=== PATIENT | male | born 1965 | race Caucasian/White ===

== ENCOUNTER 2016-05-26 22:41 | Emergency (ER) | payer SELFPAY ==
[~2016-05-26 22:41] MED LIST: Z.0.NO CURRENT MEDS
[2016-05-26 22:44] VITALS: BP 157/117; PULSE 106; RESP 20; TEMP 97.4; O2SAT 98
[2016-05-26] MEDS ORDERED: SILVER NITR/POTASSIUM NITRATE APPLICATORS TOPICAL ONE (23:30)
[2016-05-26] MEDS ORDERED: LIDOCAINE 1%/EPINEPHrine 1:100,000 SOLN 20 ML VIAL INFIL ONE (23:45)
--- NOTE | 2016-05-27 | PD ---
HPI Chief Complaint: Skin Problem Time Seen by Provider: 23:57 Travel History International Travel<30 days: No Contact w/Intl Traveler<30days: No Traveled to known affect area: No History of Present Illness HPI 50-year-old male presents to the emergency department with persistent bleeding from the left cheek after scratching his face with his fingernail. Patient states he felt a bump on his face and scratched and then started noticing a large amount of bleeding. No other injury. No prior history of similar complaint. No blood thinning agents taken. PFSH Past Medical History Tetanus Vaccination: < 5 Years Influenza Vaccination: No Social History Alcohol Use: Yes (8 BEERS DAILY) Tobacco Use: Yes (02/21 PPD) Substance Use: No Allergies-Medications (Allergen,Severity, Reaction): Coded Allergies: No Known Allergies (Unverified , 05/26/16) Reported Meds & Prescriptions Reported Meds & Active Scripts Active No Active Prescriptions or Reported Medications Review of Systems General / Constitutional: No: Fever, Chills HENT: No: Congestion, Nosebleed Cardiovascular: No: Chest Pain or Discomfort Respiratory: No: Shortness of Breath Gastrointestinal: No: Abdominal Pain Genitourinary: No: Flank Pain Musculoskeletal: No: Pain Skin: Positive Rash (roscea) Neurologic: No: Weakness Psychiatric: No: Anxiety Hematologic/Lymphatic: No: Easy Bruising, Lymph Node Enlargement Physical Exam Narrative Gen.: Well-developed well-nourished male in no acute distress no respiratory distress HEENT: Left cheek with brisk bleeding from what appears to be an avulsed angioma. No other injury. Bleeding controlled with direct pressure. Data Data Last Documented VS Vital Signs Date Time Temp Pulse Resp B/P Pulse Ox O2 Delivery O2 Flow Rate FiO2 05/26/16 22:44 97.4 106 20 157/117 98 Orders Silver Nitrate Applicators (Silver Nitra (05/26/16 23:30) Lidocai-Epi 1%-1:100,000 Inj (Xylocaine- (05/26/16 23:45) MDM Medical Decision Making Medical Screen Exam Complete: Yes Emergency Medical Condition: Yes Medical Record Reviewed: Yes Differential Diagnosis Avulsed angioma, puncture wound, coagulopathy Narrative Course Patient with brisk pulsatile light bleeding from an avulsed facial superficial angioma bleeding controlled direct pressure due to amount of bleeding decision made to place a suture to ligate the vessel at the surface. Patient is agreeable to this area was cleaned with Betadine 5-0 nylon was used as a one- time suture to ligate the bleeding and satisfactory/successful hemostasis achieved. Procedures Procedure Narrative LACERATION LOCATION: Left cheek LENGTH: Superficial hemangiomata subcentimeter NUMBER OF STITCHES/GALILEA: 1 REPAIR: The area of the laceration was prepped with Betadine and sterilely draped. The avulsed hemangioma neighboring soft tissue was infiltrated with 1% lidocaine with epi. The wound was copiously irrigated and explored without evidence of foreign body, tendon injury or neurovascular injury. The wound was closed using 5-0 nylon. This was a single layer repair. A sterile dressing was applied. The patient was advised to keep the dressing clean and dry. Patient tolerated the procedure well. Diagnosis Primary Impression: Hemangioma of face Additional Impression: Rosacea Referrals: Primary Care Physician 2 days Patient Instructions: General Instructions Additional Instructions: Keep site clean and dry Wound site check 2 days Suture removal 5 days Return to the emergency department for any concerns or change in condition Scripts No Active Prescriptions or Reported Meds Disposition: 01 DISCHARGE HOME Condition: Stable Lola Gar MD May 27, 2016 00:00
== END 2016-05-27 00:29 | disposition home or self-care (01) ==
LOC: PHEFT 22:41
DX: S01.412A Laceration without foreign body of left cheek and temporomandibular area, initial encounter (principal); D18.01 Hemangioma of skin and subcutaneous tissue; L71.9 Rosacea, unspecified; F17.200 Nicotine dependence, unspecified, uncomplicated; X58.XXXA Exposure to other specified factors, initial encounter
CPT/HCPCS: 12011

== ENCOUNTER 2016-08-07 19:23 | Emergency (ER) | payer SELFPAY ==
[~2016-08-07] VITALS: Ht 180.3 cm; Wt 90.0 kg
[2016-08-07 19:25] VITALS: BP 118/77; PULSE 67; RESP 18; TEMP 97.6; O2SAT 98
[2016-08-07 20:23] VITALS: BP 112/70; PULSE 57; RESP 18; TEMP 98; O2SAT 97
[2016-08-07] MEDS ORDERED: TETANUS/DIPHTHERIA TOXOID ADULT 0.5 ML VIAL IM ONE (20:30)
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
== END 2016-08-07 22:58 | disposition home or self-care (01) ==
LOC: NEPE 19:23
DX: S09.90XA Unspecified injury of head, initial encounter (principal); S00.01XA Abrasion of scalp, initial encounter; S80.212A Abrasion, left knee, initial encounter; S80.211A Abrasion, right knee, initial encounter; S90.511A Abrasion, right ankle, initial encounter; S50.312A Abrasion of left elbow, initial encounter; Z72.89 Other problems related to lifestyle; Z23 Encounter for immunization; W01.0XXA Fall on same level from slipping, tripping and stumbling without subsequent striking against object, initial encounter; Y93.01 Activity, walking, marching and hiking
CPT/HCPCS: 70450

== ENCOUNTER 2016-09-22 20:16 | Emergency (ER) | payer SELFPAY ==
[~2016-09-22] VITALS: Ht 180.3 cm; Wt 78.4 kg
[2016-09-22 20:32] VITALS: BP 125/75; PULSE 88; RESP 16; TEMP 98; O2SAT 99
[2016-09-22 20:57] VITALS: BP 119/82; PULSE 83; RESP 16; O2SAT 100
[2016-09-22] MEDS ORDERED: SODIUM CHLOR 0.9% 1000 ML INJ 1,000 ML IV ONE (21:12)
[2016-09-22] MEDS ORDERED: SODIUM CHLORIDE 0.9% FLUSH 10 ML FLUSH IVF PRN (21:15)
--- NOTE | 2016-09-22 21:19 | PD ---
HPI Chief Complaint: GI Complaint Time Seen by Provider: 21:12 Travel History International Travel<30 days: No Contact w/Intl Traveler<30days: No Traveled to known affect area: No History of Present Illness HPI 50-year-old male presents to the emergency department complaining of frequent daily watery yellow diarrhea 2 weeks presents by private vehicle. Patient admits to drinking alcohol. Patient has been using [id number] Imodium recently. Patient does not recall any dietary indiscretion well water ingestion or foreign travel. Patient does not recall but may have taken an antibiotic within the past month prior to onset of symptoms. Patient isn't taking any antibiotic at this time. Patient has not had any fever or chills. Patient denies abdominal pain. Patient states that onset of symptoms did have a few episodes of vomiting but no further vomiting. No change in dietary intake. No weight change. Patient denies hematemesis coffee-ground emesis bilious emesis melena or hematochezia. Patient denies any chronic medical conditions other than he does drink alcohol frequently. [facility] Past Medical History Narrative Medical Alcohol use; tobacco use; nursing notes reviewed Diminished Hearing: No ?: Not Social History Alcohol Use: Yes (8 BEERS DAILY) Tobacco Use: No Substance Use: No Allergies-Medications (Allergen,Severity, Reaction): Coded Allergies: No Known Allergies (Unverified , 08/07/16) Reported Meds & Prescriptions Reported Meds & Active Scripts Active Cipro (Ciprofloxacin HCl) 500 Mg Tab 500 Mg PO BID 7 Days Review of Systems Except as stated in HPI: all other systems reviewed are Neg General / Constitutional: No: Fever, Chills HENT: No: Congestion Cardiovascular: No: Chest Pain or Discomfort Respiratory: No: Shortness of Breath Gastrointestinal: Positive: Vomiting (times one day), Diarrhea (watery 2 weeks ), No: Nausea Genitourinary: No: Dysuria, Flank Pain Musculoskeletal: No: Pain Skin: No Rash Neurologic: No: Weakness Psychiatric: No: Anxiety Hematologic/Lymphatic: No: Lymph Node Enlargement Physical Exam Narrative GENERAL: Well-developed well-nourished male in no acute distress no respiratory distress; triage vital signs values within normal range SKIN: Warm and dry. HEAD: Normocephalic. EYES: No scleral icterus. No injection or drainage. NECK: Supple, trachea midline. No JVD or lymphadenopathy. CARDIOVASCULAR: Regular rate and rhythm without murmurs, gallops, or rubs. RESPIRATORY: Breath sounds equal bilaterally. No accessory muscle use. GASTROINTESTINAL: Abdomen soft, non-tender, nondistended. MUSCULOSKELETAL: No cyanosis, or edema. BACK: Nontender without obvious deformity. No CVA tenderness. Data Data Last Documented VS Vital Signs Date Time Temp Pulse Resp B/P Pulse Ox O2 Delivery O2 Flow Rate FiO2 09/22/16 21:58 76 16 124/78 98 Room Air 09/22/16 20:32 98.0 Orders Complete Blood Count With Diff (09/22/16 21:12) Comprehensive Metabolic Panel (09/22/16 21:12) Urinalysis - C+S If Indicated (09/22/16 21:12) Lipase (09/22/16 21:12) Abdomen, Flat & Upright (09/22/16 ) Iv Access Insert/Monitor (09/22/16 21:12) Ecg Monitoring (09/22/16 21:12) Oximetry (09/22/16 21:12) Sodium Chlor 0.9% 1000 Ml Inj (Ns 1000 M (09/22/16 21:12) Sodium Chloride 0.9% Flush (Ns Flush) (09/22/16 21:15) Enteric Path (Stool) (09/22/16 21:12) Magnesium (Mg) (09/22/16 21:12) Alcohol (Ethanol) (09/22/16 21:12) Ct Abd/Pel W Iv Contrast(Rout) (09/22/16 ) Iohexol 350 Inj (Omnipaque 350 Inj) (09/22/16 22:27) Magnesium Oxide (Mag-Ox) (09/23/16 00:00) Ciprofloxacin (Cipro) (09/23/16 00:00) Labs Laboratory Tests Test 09/22/16 09/22/16 21:15 21:52 White Blood Count 7.0 TH/MM3 Red Blood Count 3.79 MIL/MM3 Hemoglobin 10.8 GM/DL Hematocrit 32.3 % Mean Corpuscular Volume 85.3 FL Mean Corpuscular Hemoglobin 28.3 PG Mean Corpuscular Hemoglobin 33.2 % Concent Red Cell Distribution Width 17.3 % Platelet Count 47 TH/MM3 Mean Platelet Volume 8.3 FL Neutrophils (%) (Auto) 61.4 % Lymphocytes (%) (Auto) 27.4 % Monocytes (%) (Auto) 9.6 % Eosinophils (%) (Auto) 1.1 % Basophils (%) (Auto) 0.5 % Neutrophils # (Auto) 4.3 TH/MM3 Lymphocytes # (Auto) 1.9 TH/MM3 Monocytes # (Auto) 0.7 TH/MM3 Eosinophils # (Auto) 0.1 TH/MM3 Basophils # (Auto) 0.0 TH/MM3 CBC Comment AUTO DIFF Differential Comment AUTO DIFF CONFIRMED Platelet Estimate LOW Platelet Morphology Comment NORMAL Target Cells 1+ Ovalocytes 1+ Sodium Level 137 MEQ/L Potassium Level 3.6 MEQ/L Chloride Level 104 MEQ/L Carbon Dioxide Level 22.0 MEQ/L Anion Gap 11 MEQ/L Blood Urea Nitrogen 7 MG/DL Creatinine 0.87 MG/DL Estimat Glomerular Filtration 93 ML/MIN Rate Random Glucose 91 MG/DL Calcium Level 8.2 MG/DL Magnesium Level 1.4 MG/DL Total Bilirubin 1.2 MG/DL Aspartate Amino Transf 55 U/L (AST/SGOT) Alanine Aminotransferase 26 U/L (ALT/SGPT) Alkaline Phosphatase 151 U/L Total Protein 7.9 GM/DL Albumin 2.9 GM/DL Lipase 81 U/L Ethyl Alcohol Level 287 MG/DL Urine Color NEL Urine Turbidity CLEAR Urine pH 6.0 Urine Specific [place] 1.010 Urine Protein NEG mg/dL Urine Glucose (UA) NEG mg/dL Urine Ketones NEG mg/dL Urine Occult Blood NEG Urine Nitrite NEG Urine Bilirubin NEG Urine Leukocyte Esterase NEG Urine RBC 0-2 /hpf Urine WBC 0-2 /hpf Urine Squamous Epithelial 0-5 /hpf Cells Urine Bacteria NONE /hpf Microscopic Urinalysis Comment CULT NOT INDICATED MDM Medical Decision Making Medical Screen Exam Complete: Yes Emergency Medical Condition: Yes Medical Record Reviewed: Yes Interpretation(s) alcohol: 287 Last Impressions Abdomen/Pelvis CT 09/22/16 Signed Impressions: Service Date/Time: Thursday, September 22, 2016 22:24 - CONCLUSION: 1. Mural thickening of the right colon and distal left colon characteristic of a colitis. No discrete abscess. Small amount of free fluid in the abdomen and pelvis. 2. Hepatic steatosis with a lobulated appearance characteristic of liver cirrhosis. Tez Grimm MD Abdomen X-Ray 09/22/16 0000 Signed Impressions: Service Date/Time: Thursday, September 22, 2016 21:32 - CONCLUSION: 1. No acute findings. Tez Grimm MD CBC & BMP Diagram 09/22/16 21:15 Vital Signs Date Time Temp Pulse Resp B/P Pulse Ox O2 Delivery O2 Flow Rate FiO2 09/22/16 21:58 76 16 124/78 98 Room Air 09/22/16 20:57 83 16 119/82 100 Room Air 09/22/16 20:57 16 09/22/16 20:32 98.0 88 16 125/75 99 Differential Diagnosis Diarrheal illness, gastroenteritis, disturbance, antibiotic induced diarrheal illness, colitis, food borne illness Narrative Course IV access obtained specimens collected and sent for resulting cervical and patient instructed bolus of normal saline Patient given replacement of magnesium for serum magnesium of 1.4 Patient identified to have colitis by CT and begun on Cipro will defer Flagyl/ metronidazole resolved to avoid Antabuse effect as patient is alcohol level is 287 and admits to drinking alcohol daily Patient is stable for outpatient management encouraged to follow up with [facility] regarding outpatient resources for alcohol detox and encouraged to follow-up with primary care provider/[facility] or [facility]. Patient is encouraged to increase fluid hydration without alcoholic beverages and to slowly and fiber containing foods to dietary intake. Diagnosis Primary Impression: Colitis Additional Impressions: Diarrhea Qualified Code: R19.7 - Diarrhea, unspecified type Alcohol abuse Referrals: [facility] 2 days [facility] call for appointment [facility] day Patient Instructions: General Instructions Additional Instructions: Discontinue alcohol abuse Follow-up with [facility] regarding resources for alcohol detox programs Increase fluid hydration with non-alcoholic beverages Complete course of antibiotic as prescribed Avoid nsaids= Motrin/Advil/ibuprofen or naproxen/Naprosyn/Aleve May use as needed acetaminophen/Tylenol as often as every 4-6 hours for fever 100.4F or greater Return to the emergency department for any concerns or change in condition Med/Other Pt SpecificInfo: Prescription(s) given Scripts Ciprofloxacin (Cipro)500 Mg [id number] Mg PO BID 7 Days Ref 0 Prov:Lola Gar MD 09/22/16 Disposition: 01 DISCHARGE HOME Condition: Stable Lola Gar MD Sep 22, 2016 21:19
[2016-09-22 21:45] LABS: AUTOMATED NEUTROPHIL # 4.3 TH/MM3 (1.8-7.7); BASOPHIL % 0.5 % (0.0-2.0); EOSINOPHIL # 0.1 TH/MM3 (0-0.4); EOSINOPHIL % 1.1 % (0.0-4.0); HEMATOCRIT 32.3 % (39.0-51.0); LYMPH % 27.4 % (9.0-44.0); LYMPHOCYTE # 1.9 TH/MM3 (1.0-4.8); MEAN CELL VOLUME 85.3 FL (80.0-100.0); MEAN CORPUSCULAR HEMOGLOBIN 28.3 PG (27.0-34.0); MEAN CORPUSCULAR HGB CONC 33.2 % (32.0-36.0); MONO % 9.6 % (0.0-8.0); NEUT % 61.4 % (16.0-70.0); PLATELET COUNT 47 TH/MM3 (150-450); RED BLOOD COUNT 3.79 MIL/MM3 (4.50-5.90); RED CELL DISTRIBUTION WIDTH 17.3 % (11.6-17.2)
--- NOTE | 2016-09-22 21:53 | RADRPT ---
EXAM DATE/TIME: 09/22/2016 21:32 [facility] COMPARISON: No previous studies available for comparison. INDICATIONS : Diarrhea for two weeks. MEDICAL HISTORY : None. SURGICAL HISTORY : None. ENCOUNTER: Initial ACUITY: 2 weeks PAIN SCORE: 0/10 LOCATION: abdomen FINDINGS: Supine and upright views of the abdomen were performed. The abdominal bowel gas pattern is normal. No air fluid levels are seen. No abnormal masses, calcifications, or organomegaly is seen. The visu alized lower lungs are clear. No evidence of free intraperitoneal gas. The osseous structures are u nremarkable. CONCLUSION: 1. No acute findings. Tez Grimm MD on September 22, 2016 at 21:50 Board Certified Radiologist. This report was verified electronically.
[2016-09-22 21:55] LABS: HEMO FLAGS AUTO DIFF
[2016-09-22 21:57] LABS: CHLORIDE 104 MEQ/L (98-107); POTASSIUM 3.6 MEQ/L (3.5-5.1); SODIUM (NA) 137 MEQ/L (136-145)
[2016-09-22 21:58] VITALS: BP 124/78; PULSE 76; RESP 16; O2SAT 98
[2016-09-22 22:01] LABS: ANION GAP 11 MEQ/L (5-15); MAGNESIUM 1.4 MG/DL (1.5-2.5)
[2016-09-22 22:02] LABS: BLOOD UREA NITROGEN 7 MG/DL (7-18)
[2016-09-22 22:04] LABS: ALT (GPT) 26 U/L (12-78); AST (GOT) 55 U/L (15-37); GLOMERULAR FILTRATION RATE 93 ML/MIN (>89)
[2016-09-22 22:06] LABS: TOTAL BILIRUBIN ADULT 1.2 MG/DL (0.2-1.0)
[2016-09-22 22:07] LABS: ALKALINE PHOSPHATASE 151 U/L (45-117)
[2016-09-22 22:08] LABS: BLOOD, URINE NEG (NEG); GLUCOSE,URINE NEG (NEG); KETONE, URINE NEG (NEG); NITRITE,URINE NEG (NEG)
[2016-09-22 22:16] LABS: RBC, URINE 0-2 /hpf (0-3); SQUAMOUS EPITHELIAL CELL URINE 0-5 /hpf (0-5); URINE COLOR AMBER (YELLW/STRAW); WBC, URINE 0-2 /hpf (0-5)
[2016-09-22 22:17] LABS: COMMENT (UR) CULT NOT INDICATED; CULTURE IF INDICATED CULT NOT INDICATED
[2016-09-22] MEDS ORDERED: IOHEXOL 350 MG/ML 10 ML VIAL (for RAD DIAG) IV ONE (22:27)
[2016-09-22 22:35] LABS: OVALOCYTES 1+ (NORMAL); PLATELET ESTIMATE SMEAR LOW (NORMAL); PLATELET MORPHOLOGY NORMAL (NORMAL); SCAN/DIFF AUTO DIFF CONFIRMED; TARGET CELLS 1+ (NORMAL)
--- NOTE | 2016-09-22 22:51 | RADRPT ---
EXAM DATE/TIME: 09/22/2016 22:24 [facility] COMPARISON: No previous studies available for comparison. INDICATIONS : Diarrhea for 2 weeks. IV CONTRAST: 96 cc Omnipaque 350 (iohexol) IV ORAL CONTRAST: No oral contrast ingested. RADIATION DOSE: 9.29 CTDIvol (mGy) MEDICAL HISTORY : None SURGICAL HISTORY : None. ENCOUNTER: Initial ACUITY: 2 weeks PAIN SCALE: 0/10 LOCATION: TECHNIQUE: Volumetric scanning of the abdomen and pelvis was performed. Using automated exposure control and ad justment of the mA and/or kV according to patient size, radiation dose was kept as low as reasonably achievable to obtain optimal diagnostic quality images. DICOM format image data is available electro nically for review and comparison. FINDINGS: Lung bases are clear. There is diffuse fatty infiltration of the liver and enlargement of the caudate lobe with a lobulated appearance characteristic of liver cirrhosis. Spleen, adrenals, kidneys and pa ncreas unremarkable. There is mural thickening of the colon with pericolonic inflammatory changes especially in the right colon and hepatic flexure and to a lesser extent distally on the left characteristic of colitis. No pelvic masses or adenopathy. Small amount free fluid and retroperitoneal fluid in the abdomen and pelvis. CONCLUSION: 1. Mural thickening of the right colon and distal left colon characteristic of a colitis. No discrete abscess. Small amount of free fluid in the abdomen and pelvis. 2. Hepatic steatosis with a lobulated appearance characteristic of liver cirrhosis. Tez Grimm MD on September 22, 2016 at 22:47 Board Certified Radiologist. This report was verified electronically.
[2016-09-22] MEDS ORDERED: CIPR-9 PO (23:56)
[2016-09-23] MEDS ORDERED: MAGNESIUM OXIDE 400 MG TAB PO ONE
[2016-09-23] MEDS ORDERED: CIPROFLOXACIN 500 MG TAB PO ONE
[2016-09-23 00:27] VITALS: BP 141/81
== END 2016-09-23 00:32 | disposition home or self-care (01) ==
LOC: PHED 20:16
DX: K52.9 Noninfective gastroenteritis and colitis, unspecified (principal); F10.10 Alcohol abuse, uncomplicated; Y90.8 Blood alcohol level of 240 mg/100 ml or more
CPT/HCPCS: 74020; 74177; 80053; 80307; 81001; 83690; 83735; 85025; 87506; 96360; 99285; J7030; Q9967

== ENCOUNTER 2016-10-21 00:26 | Emergency (ER) | payer SELFPAY ==
[~2016-10-21] VITALS: Ht 180.3 cm; Wt 83.0 kg
[~2016-10-21 00:26] MED LIST changes: +BACT800T5 PO; +CIPR-9 PO; -Z.0.NO CURRENT MEDS
[2016-10-21 00:30] VITALS: BP 149/91; PULSE 77; RESP 18; TEMP 97.4; O2SAT 96
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
[2016-10-21 01:23] LABS: AUTOMATED NEUTROPHIL # 2.6 TH/MM3 (1.8-7.7); BASOPHIL # 0.1 TH/MM3 (0-0.2); BASOPHIL % 1.6 % (0.0-2.0); EOSINOPHIL # 0.1 TH/MM3 (0-0.4); HEMATOCRIT 35.1 % (39.0-51.0); LYMPH % 40.3 % (9.0-44.0); LYMPHOCYTE # 2.2 TH/MM3 (1.0-4.8); MEAN CELL VOLUME 89.1 FL (80.0-100.0); MEAN CORPUSCULAR HEMOGLOBIN 29.6 PG (27.0-34.0); MEAN CORPUSCULAR HGB CONC 33.3 % (32.0-36.0); MONO % 9.1 % (0.0-8.0); PLATELET COUNT 82 TH/MM3 (150-450); RED BLOOD COUNT 3.94 MIL/MM3 (4.50-5.90); WHITE BLOOD COUNT 5.5 TH/MM3 (4.0-11.0)
[2016-10-21] MEDS: SODIUM CHLOR 0.9% 1000 ML INJ 1,000 ML IV SCH ×2 (01:25→01:32)
[2016-10-21 01:31] LABS: CHLORIDE 97 MEQ/L (98-107); HEMO FLAGS DIFF FINAL; POTASSIUM 4.3 MEQ/L (3.5-5.1); SODIUM (NA) 132 MEQ/L (136-145)
[2016-10-21 01:35] LABS: ANION GAP 9 MEQ/L (5-15); BICARBONATE 26.3 MEQ/L (21.0-32.0); BLOOD UREA NITROGEN 4 MG/DL (7-18)
[2016-10-21 01:38] LABS: ALT (GPT) 42 U/L (12-78); AST (GOT) 126 U/L (15-37); GLOMERULAR FILTRATION RATE 123 ML/MIN (>89)
[2016-10-21 01:39] LABS: TOTAL BILIRUBIN ADULT 1.7 MG/DL (0.2-1.0)
[2016-10-21 01:41] LABS: ALKALINE PHOSPHATASE 144 U/L (45-117)
[2016-10-21 01:45] LABS: ALCOHOL 468 MG/DL (0-5)
[2016-10-21 02:00] VITALS: BP 136/82; PULSE 77; RESP 18; O2SAT 97
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
[2016-10-21] MEDS ORDERED: THIAMINE INJ 100 MG in SODIUM CHLORIDE 0.9% INJ 100 ML IV ONE (02:30)
[2016-10-21 04:00] VITALS: BP 132/84; PULSE 74; RESP 18; O2SAT 97
[2016-10-21 05:52] VITALS: BP 134/80; PULSE 72; RESP 18; O2SAT 97
== END 2016-10-21 06:09 | disposition home or self-care (01) ==
LOC: PHED 00:26
DX: F10.129 Alcohol abuse with intoxication, unspecified (principal); S20.219A Contusion of unspecified front wall of thorax, initial encounter; Y93.55 Activity, bike riding; V19.9XXA Pedal cyclist (driver) (passenger) injured in unspecified traffic accident, initial encounter; I10 Essential (primary) hypertension
CPT/HCPCS: 71101; 80053; 80307; 85025; 96361; 96365; 99284; J3411; J7030

== ENCOUNTER 2016-11-03 16:41 | Emergency (ER) | payer SELFPAY ==
[~2016-11-03] VITALS: Ht 182.9 cm; Wt 83.1 kg
[2016-11-03 18:02] VITALS: BP 106/64; PULSE 77; RESP 16; TEMP 98.7; O2SAT 98
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
[2016-11-03] MEDS ORDERED: TETANUS/DIPHTHERIA TOXOID ADULT 0.5 ML VIAL IM ONE (19:00)
[2016-11-03 19:03] VITALS: BP 120/67; PULSE 94; RESP 16; TEMP 98.3; O2SAT 96
== END 2016-11-03 19:34 | disposition home or self-care (01) ==
LOC: PHED 16:41
DX: F10.129 Alcohol abuse with intoxication, unspecified (principal); G62.9 Polyneuropathy, unspecified; I10 Essential (primary) hypertension
CPT/HCPCS: 90471; 90714